=== PATIENT | male | born 1960 | race Two or more races ===

== ENCOUNTER 2018-07-15 11:22 | Emergency (ER) | payer OTHER ==
[~2018-07-15] VITALS: Ht 167.6 cm; Wt 72.6 kg
[2018-07-15 11:46] VITALS: BP 149/72
[2018-07-15] MEDS ORDERED: HYDROcodone-ACET 10/325MG TAB PO ONE (13:15)
== END 2018-07-15 14:04 | disposition home or self-care (01) ==
LOC: ER 11:27
DX: S92.201A Fracture of unspecified tarsal bone(s) of right foot, initial encounter for closed fracture (principal); W11.XXXA Fall on and from ladder, initial encounter; Y93.89 Activity, other specified; Y99.8 Other external cause status; Y92.89 Other specified places as the place of occurrence of the external cause
CPT/HCPCS: 73600; 73620; 99283; L3260